=== PATIENT | male | born 1975 | race Caucasian/White ===

== ENCOUNTER 2020-06-17 17:55 | Emergency (ER) | payer MEDICAID ==
[~2020-06-17] VITALS: Ht 160 cm; Wt 81.6 kg
[2020-06-17 18:03] VITALS: Ht 160 cm; Wt 81.6 kg
[2020-06-17 19:06] LABS: BASOPHIL % 0.2 % (0-2); PLATELET COUNT 256 x10^3mcL (130-400); RED CELL DISTRIBUTION WIDTH 13.9 % (11.5-14.5)
[2020-06-17 19:15] LABS: CALCIUM 9.1 mg/dL (8.5-10.1); CARBON DIOXIDE 31.3 mmol/L (21-32); CHLORIDE SERUM 99 mmol/L (98-107); GFR1 > 60 mL/min; GLUCOSE SERUM 106 mg/dL (74-106); POTASSIUM SERUM 3.4 mmol/L (3.5-5.1); SODIUM SERUM 137 mmol/L (136-145)
[2020-06-17 19:26] LABS: T3 TOTAL 1.6 ng/mL
[2020-06-17 19:28] LABS: FREE T4 0.89 ng/dL (0.76-1.46); FREE THYROXINE INDEX 2.7 ug/dL (1.4-4.5); T4(THYROXINE) 8.1 ug/dL (4.7-13.3)
[2020-06-17 19:29] LABS: ALBUMIN 3.9 g/dL (3.4-5.0); ALKALINE PHOSPHATASE 80 U/L (46-116); ALT/SGPT 36 U/L (16-63); AST/SGOT 18 U/L (15-37); BILIRUBIN TOTAL 0.53 mg/dL (0.20-1.00); CHOLESTEROL 196 mg/dL (<200); CHOLESTEROL/HDL RATIO 5.6; HDL CHOLESTEROL 35 mg/dL (40-60); LIPASE 77 IU/L (73-393); TRIGLYCERIDES 124 mg/dL (<150)
[2020-06-17 21:21] LABS: AMPHETAMINE QUAL UR NONE DETECTED (See below)
[2020-06-18 01:42] VITALS: BP 112/61
== END 2020-06-18 01:43 | disposition home or self-care (01) ==
LOC: ED 17:55
PROVIDERS: Specialist
DX: R07.89 Other chest pain (principal); I10 Essential (primary) hypertension; E78.00 Pure hypercholesterolemia, unspecified
CPT/HCPCS: 82962; 83880; 84439

== ENCOUNTER 2020-10-24 02:23 | Emergency (ER) | payer SELFPAY ==
[~2020-10-24] VITALS: Ht 165.1 cm; Wt 78.9 kg
[2020-10-24 02:29] VITALS: Ht 165.1 cm; Wt 78.9 kg
[2020-10-24 03:03] LABS: BASOPHIL % 0.4 % (0.2-1.5); PLATELET COUNT 254 x10^3mcL (152-348); RED CELL DISTRIBUTION WIDTH 13.5 % (12.1-16.2)
[2020-10-24 03:15] LABS: ALKALINE PHOSPHATASE 78 U/L (46-116); ALT/SGPT 41 U/L (16-63); AST/SGOT 20 U/L (15-37); BILIRUBIN TOTAL 0.33 mg/dL (0.20-1.00); CALCIUM 9.5 mg/dL (8.5-10.1); CARBON DIOXIDE 32.2 mmol/L (21-32); CHLORIDE SERUM 100 mmol/L (98-107); GFR1 > 60 mL/min; GLUCOSE SERUM 146 mg/dL (74-106); SODIUM SERUM 137 mmol/L (136-145); TOTAL PROTEIN, SERUM 7.7 g/dL (6.4-8.2)
[2020-10-24 03:17] LABS: POTASSIUM SERUM 2.6 mmol/L (3.5-5.1)
[2020-10-24] MEDS ORDERED: K-TAB20 MEQ PO (03:20)
[2020-10-24 04:24] VITALS: BP 132/81
== END 2020-10-24 04:24 | disposition home or self-care (01) ==
LOC: ED 02:23
DX: E87.6 Hypokalemia (principal); R00.2 Palpitations; I10 Essential (primary) hypertension; E78.00 Pure hypercholesterolemia, unspecified